=== PATIENT | male | born 1940 | race Two or more races ===

== ENCOUNTER 2024-07-11 17:07 | Emergency (ER) | payer MEDICARE ==
[~2024-07-11] VITALS: Ht 177.8 cm; Wt 75.3 kg
[2024-07-11 17:16] VITALS: BP 153/81; TEMP 98.7
[2024-07-11 17:20] VITALS: O2SAT 97
[2024-07-11] MEDS ORDERED: TETRAcaine 5 ML BOTTLE ONE (17:44)
[2024-07-11] MEDS ORDERED: POLY10DR OP (17:58)
[2024-07-11] MEDS: FLUORESCEIN SODIUM OPHTH 1 EA STRIP OP ONE (18:00)
== END 2024-07-11 18:07 | disposition home or self-care (01) ==
LOC: ER 17:07
DX: H57.11 Ocular pain, right eye (principal); N40.0 Benign prostatic hyperplasia without lower urinary tract symptoms